=== PATIENT | female | born 1930 | race Caucasian/White ===

== ENCOUNTER 2018-07-27 15:33 | Emergency (ER) | payer SELFPAY ==
[~2018-07-27] VITALS: Ht 165.1 cm; Wt 66.6 kg
[2018-07-27 15:54] VITALS: Ht 165.1 cm; Wt 66.6 kg
[2018-07-27] MEDS ORDERED: ACET325T33 PO (18:13)
[2018-07-27] MEDS ORDERED: IBUP-1542 PO (18:13)
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
[2018-07-27 18:45] VITALS: BP 149/65; PULSE 66; RESP 16
== END 2018-07-27 18:45 | disposition home or self-care (01) ==
LOC: FTE 15:33
DX: F19.10 Other psychoactive substance abuse, uncomplicated (principal)
CPT/HCPCS: 72040